=== PATIENT | male | born 1975 | race Caucasian/White ===

== ENCOUNTER 2022-09-03 13:23 | Emergency (ER) | payer BC, SELFPAY ==
[2022-09-03 13:24] VITALS: BP 146/91; PULSE 104; RESP 18; TEMP 36.4; O2SAT 98; BMI 29.8
--- NOTE | 2022-09-03 13:31 | XR_ITS ---
FINAL REPORT CLINICAL HISTORY: Low back pain worse when standing COMPARISON: None FINDINGS: No fracture is identified. Mild diffuse degenerative disc disease with endplate spurring. Alignment is normal. IMPRESSION: Degenerative changes without acute findings. Reviewed, Interpreted and Dictated by Lashaun Yates MD Transcribed by Maricarmen Norris Authenticated and [facility]
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
[2022-09-03 14:00] VITALS: BP 162/94; PULSE 104; RESP 20; O2SAT 96
[2022-09-03 14:30] VITALS: BP 126/93; PULSE 85; RESP 18; O2SAT 96
[2022-09-03 15:00] VITALS: BP 138/104; PULSE 79; RESP 18; O2SAT 96
--- NOTE | 2022-09-03 15:21 | PC.NURSE ---
PATIENT GIVEN BLANKET, MOTHER AT BEDSIDE NO OTHER NEEDS AT THIS TIME
[2022-09-03 15:35] VITALS: BP 146/99; PULSE 80; RESP 17; TEMP 36.8; O2SAT 97
== END 2022-09-03 15:35 | disposition home or self-care (01) ==
PROVIDERS: Emergency Provider Emergency Medicine; PCP Emergency Medicine
DX: S39.012A Strain of muscle, fascia and tendon of lower back, initial encounter (principal); F17.200 Nicotine dependence, unspecified, uncomplicated; X58.XXXA Exposure to other specified factors, initial encounter
CPT/HCPCS: 72100; 96372; 99283; 99284

== ENCOUNTER 2022-10-10 20:13 | Emergency (ER) | payer BC, SELFPAY ==
[2022-10-10 20:13] VITALS: BP 141/95; PULSE 89; RESP 16; TEMP 36.9; O2SAT 96; BMI 27.2
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
--- NOTE | 2022-10-10 20:26 | PC.NURSE ---
Attempted to call [place] twice for pt transportation. Received no answer.
[2022-10-10 20:29] VITALS: BP 136/93; PULSE 89; RESP 18; TEMP 36.7; O2SAT 96
--- NOTE | 2022-10-10 20:50 | PC.NURSE ---
Spoke with Oxana at [place] she advised I will have someone come get him.
== END 2022-10-10 21:05 | disposition home or self-care (01) ==
PROVIDERS: Emergency Provider Student in an Organized Health Care Education/Training Program; PCP Emergency Medicine
DX: S01.01XA Laceration without foreign body of scalp, initial encounter (principal); G40.919 Epilepsy, unspecified, intractable, without status epilepticus; E03.9 Hypothyroidism, unspecified; Y09 Assault by unspecified means; Z23 Encounter for immunization
CPT/HCPCS: 12002; 90715; 96372; 99283

== ENCOUNTER 2023-12-21 12:36 | Emergency (ER) | payer BC, SELFPAY ==
[2023-12-21 12:39] VITALS: BP 132/95; PULSE 106; RESP 18; O2SAT 97; BMI 18.7
[2023-12-21 12:48] VITALS: BP 132/95; PULSE 98; O2SAT 92
[2023-12-21 13:01] VITALS: BP 141/86; PULSE 96; O2SAT 96
--- NOTE | 2023-12-21 13:12 | PC.NURSE ---
dr abbasi at bedside
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
[2023-12-21 13:30] VITALS: BP 130/85; PULSE 98; O2SAT 97
--- NOTE | 2023-12-21 14:07 | PC.NURSE ---
ABDULKADIR NOTIFIED THAT RESIDENT IS READY FOR DISCHARGE
[2023-12-21 14:15] VITALS: BP 139/92; PULSE 97; RESP 18; TEMP 36.7; O2SAT 99
== END 2023-12-21 14:21 | disposition home or self-care (01) ==
PROVIDERS: Emergency Provider Student in an Organized Health Care Education/Training Program; PCP Nurse Practitioner Acute Care
DX: S09.90XA Unspecified injury of head, initial encounter (principal); Y04.0XXA Assault by unarmed brawl or fight, initial encounter
CPT/HCPCS: 99283

== ENCOUNTER 2024-11-11 07:56 | Emergency (ER) | payer OTHER, SELFPAY ==
[2024-11-11] VITALS (9 sets, daily range): BP systolic 106–131; BP diastolic 65–82; PULSE 92–114; RESP 12; TEMP 36.8; O2SAT 94–95; BMI 33.5
--- NOTE | 2024-11-11 07:58 | XR_ITS ---
PROCEDURE INFORMATION: Exam: XR Right Hand Exam date and time: 11/11/2024 8:19 AM Age: 49 years old Clinical indication: Pain; Hand; Right; Additional info: Right index finger pain TECHNIQUE: Imaging protocol: Radiologic exam of the right hand. Views: 3 or more views. COMPARISON: No relevant prior studies available. FINDINGS: Bones/joints: No acute fracture or dislocation. Soft tissues: Questionable soft tissue edema proximal 2nd digit. No radiopaque foreign body. IMPRESSION: Questionable soft tissue edema proximal 2nd digit. No radiopaque foreign body.
--- NOTE | 2024-11-11 08:00 | ED_ITS ---
Discharge Plan Disposition Patient Disposition: Home, Self-Care Condition: Good Prescriptions Prescriptions: No Action acetaminophen-codeine 300-30 mg tablet 1 tab PO BID Qty: 60 2RF ketorolac 10 mg tablet 10 mg PO Q8H PRN (Reason: pain) Qty: 20 0RF Activity Restrictions/Add. Instructions Additional Instructions/Restrictions: Your XR today was normal. You can take Ibuprofen or Tylenol at home for pain. If you have any new or worsening symptoms please return to the ER for further evaluation. Clinical Impressions Clinical Impression: Finger pain, right Print Language Print Language: Syriac Discharge ED Provider: Angus Paula General Adult HPI General Chief complaint: PAIN Stated complaint: R hand pain Time Seen by Provider: 11/11/24 07:59 History of Present Illness HPI narrative: This is a 49-year-old male patient who is presenting to the emergency department today for evaluation of right index finger pain. Patient states that he has been having this pain in his index finger for quite some time over the past year. He states that the pain is not necessarily the driving factor that caused him to present to the emergency department today, but rather the fact that when he flexes and extends the finger he feels a crunching sensation in the finger. He has not had any traumatic injury to the hand. He denies punching or hitting objects. He has not had any fevers or chills, no overlying erythema, he has not noticed any joint swelling, and he denies a history of IV drug use. He has no abnormal sensation in the hand over the finger. Related Data Previous Rx's ?Medication ?Instructions ?Recorded ketorolac 10 mg tablet 10 mg PO Q8H PRN pain #20 ta bs 09/03/22 acetaminophen 300 mg-codeine 30 mg 1 tab PO BID #60 ta bs 02/04/23 tablet Allergies Allergy/AdvReac Type Severity Reaction Status Date / Time Unable to Assess Allergy Verified 09/03/22 13:42 [facility] Disclaimer: The information contained in this section may have been updated after the patient was seen, as this information can be updated by other users. Social History Smoking Status: Current every day smoker alcohol intake: never current occupational status: unemployed Travel in the last 8 weeks?: None Have you lived/traveled outside US in past 30 days?: No Contact w/someone who lives/traveled outside US past 30 days?: No Exposure to someone with infectious disease in past 14 days?: No Do you have a fever (greater than 100.4 F or 38 C)?: No Have you tested positive for COVID-19?: No Exposed to someone with COVID-19 in past 14 days?: No Do you have a sore throat?: No Do you have a cough?: No Do you have any weakness?: No Do you have any diarrhea?: No Are you experiencing any unusual bleeding?: No Do you have any muscle aches/pain?: No Do you have any abdominal pain?: No Are you experiencing loss of taste or smell?: No ROS Obtained: Yes All systems reviewed & no additional complaints except as documented Physical Exam General General appearance: other (See MDM) Respiratory Respiratory exam: Present other (See MDM) Cardiovascular Cardiovascular exam: Present other (See MDM) Neurological Exam Neurological exam: Present other (See MDM) Medical Decision Making Medical Records Medical records reviewed: Yes I reviewed the patient's medical records. Screening: Per USPSTF and CDC recommendations, given the prevalence of disease in our region, it is our hospital?s policy to screen for HIV and viral Hepatitis for all patients aged 18 and over and those with ongoing risk factors. Tim Inquiry Pt receiving controlled substance: No Tim was queried for this patient: No Vital Signs: 11/11/24 07:55 11/11/24 08:01 Temperature 98.3 F 98.3 F Temperature Source Oral Oral Pulse Rate 114 H Pulse Rate [Right] 114 H Respiratory Rate 12 12 Blood Pressure 131/65 Blood Pressure [Right Arm] 131/65 Blood Pressure Mean [Right Arm] 87 Blood Pressure Source Automatic Cuff Blood Pressure Source [Right Arm] Automatic Cuff Blood Pressure Position Supine Blood Pressure Position [Right Arm] Supine 02 Sat by Pulse Oximetry 95 95 Oxygen Delivery Method Room Air Room Air Orders (Tests/Meds): ED MEDICATIONS Discontinued Medications Generic Name Dose Route Start Last Admin Trade Name Freq PRN Reason Stop Dose Admin Acetaminophen 500 mg 11/11/24 08:00 11/11/24 08:15 Acetaminophen 500mg Tab PO 11/11/24 08:01 500 mg ONCE ONE Administration Ibuprofen 400 mg 11/11/24 08:00 11/11/24 08:15 Ibuprofen 400 Mg Tablet PO 11/11/24 08:01 400 mg ONCE ONE Administration ORDERS Category Date Time Status Hand XR right minimum 3 views [XR hand RT min 3V] Stat Exams 11/11/24 07:58 Taken Medical Decision Narrative: In summary, this is a 49-year-old male patient who is presenting from [facility] for evaluation of right index finger pain that has been going on for the last year. He is most disturbed by the fact that there is a crunching sensation appreciated when he flexes and extends the finger. He has had no traumatic injury to the finger. He does not have any significant comorbidities that would complicate his medical management or care. On initial evaluation of the patient they were resting comfortably in no acute distress and nontoxic in appearance. They are hemodynamically stable, saturating well room air, and are neurologically intact. On physical examination the patient does have mild tenderness along the proximal phalanx of the right index finger. He has normal sensation in all terminal nerve distributions of the right hand. Radial and ulnar pulses are intact in the right upper extremity. He has capillary refill less than 2 seconds distally in the digit. There is no obvious external signs of trauma to the hand. Differential diagnosis includes phalanx fracture, osteoarthritis, metacarpal fracture, among others. I have very low suspicion for more ominous diagnoses of septic arthritis as there is no effusion of the joint, no erythema overlying any of his joints, and he has no history of IV drug use. Initial interventions included 400 mg of ibuprofen and 500 mg of Tylenol. Initial workup included an x-ray of the right hand. X-ray was personally interpreted by me and demonstrated no acute fractures or dislocations. On reassessment of the patient he is resting comfortably in no acute distress. His symptoms of pain have improved with interventions listed above. We have also provided him with a healthy breakfast that he ate without difficulty. Patient is stable for discharge home. I have relayed imaging findings to the patient and he is reassured by these. At this time all questions have been answered and all parties are agreeable with the decision to discharge home Critical Care Critical Care Time Critical Care Time: No
[2024-11-11] MEDS: ACETAMINOPHEN 500MG TAB 500 MG PO (08:15)
[2024-11-11] MEDS: IBUPROFEN 400 MG TABLET PO (08:15)
--- NOTE | 2024-11-11 09:02 | PC.NURSE ---
08:50- Called [facility] to let them know that their resident was ready for discharge. [facility]
--- NOTE | 2024-11-11 09:57 | PC.NURSE ---
TRN called [facility] to check status of pt transportation, staff state that they are still working on it.
== END 2024-11-11 10:19 | disposition home or self-care (01) ==
PROVIDERS: Emergency Provider Student in an Organized Health Care Education/Training Program
DX: M79.644 Pain in right finger(s) (principal)
CPT/HCPCS: 73130; 99283

== ENCOUNTER 2025-03-22 11:43 | Emergency (ER) | payer OTHER, SELFPAY ==
--- NOTE | 2025-03-22 11:43 | XR_ITS ---
PROCEDURE INFORMATION: Exam: XR Right Femur Exam date and time: 03/22/2025 11:59 AM Age: 49 years old Clinical indication: Pain; Thigh; Right; Additional info: Fall TECHNIQUE: Imaging protocol: Radiologic exam of the right femur. Views: 2 views. COMPARISON: CR XR HIP RT 2-3V W/PELVIS 03/22/2025 11:59 AM FINDINGS: Bones/joints: No acute fracture or dislocation. Partially visualized tibial intramedullary gareth and proximal fixation screw. Soft tissues: Unremarkable. IMPRESSION: No acute findings.
--- NOTE | 2025-03-22 11:43 | XR_ITS ---
PROCEDURE INFORMATION: Exam: XR Right Hip Exam date and time: 03/22/2025 11:59 AM Age: 49 years old Clinical indication: Hip pain; Right hip; Additional info: Fall TECHNIQUE: Imaging protocol: Radiologic exam of the right hip. Views: 2 or 3 views hip with pelvis when performed. COMPARISON: CR XR LUMBAR SPINE 2-3V 09/03/2022 1:33 PM FINDINGS: Bones/joints: No acute fracture or dislocation. Moderate bilateral hip degenerative changes. Soft tissues: Unremarkable. IMPRESSION: No acute findings.
--- NOTE | 2025-03-22 11:43 | CT_ITS ---
PROCEDURE INFORMATION: Exam: CT Head Without Contrast Exam date and time: 03/22/2025 12:13 PM Age: 49 years old Clinical indication: Injury or trauma; Fall TECHNIQUE: Imaging protocol: Computed tomography of the head without contrast. Radiation optimization: All CT scans at this facility use at least one of these dose optimization techniques: automated exposure control; mA and/or kV adjustment per patient size (includes targeted exams where dose is matched to clinical indication); or iterative reconstruction. COMPARISON: No relevant prior studies available. FINDINGS: Brain: Extensive hypoattenuation in the bilateral frontal periventricular and subcortical white matter. Cortical encephalomalacia in the [id number]-[id number]-khuq-left inferior frontal lobes. Foci of hypoattenuation also seen in the right posterior frontal granados radiata. Central predominant cerebral volume loss, greater than expected for age. No significant mass effect. Cerebral ventricles: The lateral ventricles are enlarged, [id number]-[id number]-left, likely vacuo dilatation. The 3rd ventricle is prominent. Paranasal sinuses: Mild left maxillary sinus mucosal thickening. Mastoid air cells: The tympanomastoid cavities are clear. Bones: Bilateral maxillary ORIF and partial right maxillectomy. Soft tissues: Unremarkable. IMPRESSION: 1. No acute hemorrhage or mass effect. 2. Extensive white matter hypoattenuation in the bilateral frontal periventricular and subcortical white matter. MRI is recommended for further evaluation. 3. 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 4. Central predominant cerebral volume loss, greater than expected for age.
--- NOTE | 2025-03-22 11:44 | ED_ITS ---
Discharge Plan Disposition Patient Disposition: Home, Self-Care Prescriptions Prescriptions: No Action acetaminophen-codeine 300-30 mg tablet 1 tab PO BID Qty: 60 2RF ketorolac 10 mg tablet 10 mg PO Q8H PRN (Reason: pain) Qty: 20 0RF Referrals Follow up/Referrals: Provider,Referral, MD [Primary Care Provider, Medical] - See instructions Activity Restrictions/Add. Instructions Additional Instructions/Restrictions: At this time it was felt you are safe to be discharged home. If new or worsening symptoms please do not hesitate to return the emergency department. Please follow-up with your care provider as soon as you can to see if you need further imaging of your brain. I did not find any traumatic injuries today from your fall. Clinical Impressions Clinical Impression: Fall, Abnormal CT of the head Print Language Print Language: Emirati Discharge ED Provider: Juan Wang General Adult HPI General Chief complaint: Fall Stated complaint: Fall Time Seen by Provider: 03/22/25 11:47 History of Present Illness HPI narrative: Patient is a 49-year-old male who presents emergency department for evaluation of traumatic injury sustained in fall. Patient just got done using the bathroom when he stood up became unsteady on his feet and fell backwards hitting his right hip on either the side of the sink or the tub. He scraped his head on the wall going down but did not strike his head on the floor. No anticoagulants. He is typically difficult to get around but is able to ambulate with difficulty and unsteadiness. He is not complaining of anything other than right hip pain. Fingerstick en route acceptable. No other acute complaints at this time. Please note that above description of symptoms, in this electronic medical record under categorization of recalled from ER triage doctor by RN are reflective of an initial nursing assessment, however, is not reflective of my full history and physical exam that was personally taken and clarified. Consequentially, this preceding description of symptoms, which may include the patient's categorized chief complaint in the EMR, do not reflect my personal clinical impression, and the ultimate description of history of present illness and patient stated complaints should be deferred to this section of the note. Unless stated otherwise or congruent with this section of the note, additional signs, symptoms, or incongruence should be interpreted as inaccurate with my clinical impression. Related Data Previous Rx's ?Medication ?Instructions ?Recorded ketorolac 10 mg tablet 10 mg PO Q8H PRN pain #20 ta bs 09/03/22 acetaminophen 300 mg-codeine 30 mg 1 tab PO BID #60 ta bs 02/04/23 tablet Allergies Allergy/AdvReac Type Severity Reaction Status Date / Time No Known Allergies Allergy Verified 11/11/24 10:01 [facility] Disclaimer: The information contained in this section may have been updated after the patient was seen, as this information can be updated by other users. Social History Smoking Status: Current every day smoker alcohol intake: never current occupational status: unemployed Travel in the last 8 weeks?: None ROS Obtained: Yes Systems reviewed as appropriate & no additional complaints except as documented Physical Exam General General appearance: alert and in no apparent distress Head Head exam: atraumatic and normocephalic Eye Eye exam: Present PERRL and EOMI ENT ENT exam: Present mucous membranes moist Neck Neck exam: Present normal inspection Chest Chest inspection: Present normal inspection and symmetric chest wall rise Respiratory Respiratory exam: Present normal lung sounds bilaterally; Absent respiratory distress Cardiovascular Cardiovascular exam: Present regular rate and normal rhythm Abdominal Exam Abdominal exam: Present soft; Absent tenderness Extremities Exam Extremities exam: Present other (Tenderness right hip, extensor mechanism intact 5 out of 5 strength BLE.) Back Exam Back exam: Absent tenderness Neurological Exam Neurological exam: Present alert and oriented X3 Psychiatric Psychiatric exam: Present normal affect Skin Skin exam: Present warm and dry Medical Decision Making Medical Records Screening: Per USPSTF and CDC recommendations, given the prevalence of disease in our region, it is our hospital?s policy to screen for HIV and viral Hepatitis for all patients aged 18 and over and those with ongoing risk factors. Tim Inquiry Pt receiving controlled substance: No Vital Signs: 03/22/25 11:45 03/22/25 11:46 03/22/25 12:30 Temperature 98.6 F Temperature Source Oral Pulse Rate 95 H 86 Pulse Rate [Left Radial] 61 Respiratory Rate 16 Blood Pressure 132/95 H Blood Pressure [Right Arm] 132/92 H Blood Pressure Mean [Right Arm] 105 Blood Pressure Source [Right Arm] Automatic Cuff Blood Pressure Position [Right Arm] Supine 02 Sat by Pulse Oximetry 94 L 96 94 L Oxygen Delivery Method Room Air 03/22/25 13:00 Temperature Temperature Source Pulse Rate 79 Pulse Rate [Left Radial] Respiratory Rate Blood Pressure 117/79 Blood Pressure [Right Arm] Blood Pressure Mean [Right Arm] Blood Pressure Source [Right Arm] Blood Pressure Position [Right Arm] 02 Sat by Pulse Oximetry 96 Oxygen Delivery Method Orders (Tests/Meds): ED MEDICATIONS Discontinued Medications Generic Name Dose Route Start Last Admin Trade Name Linette PRN Reason Stop Dose Admin Acetaminophen 1,000 mg 03/22/25 11:43 03/22/25 11:53 Acetaminophen 500mg Tab PO 03/22/25 11:44 1,000 mg ONCE ONE Administration Methocarbamol 1,000 mg 03/22/25 11:43 03/22/25 11:53 Methocarbamol 500mg Tablet PO 03/22/25 11:44 1,000 mg ONCE ONE Administration ORDERS Category Date Time Status CT head/brain wo con Stat Cat Scan 03/22/25 11:43 Completed Femur XR right 2 views [XR femur RT 2V] Stat Exams 03/22/25 11:43 Completed Hip XR right minimum 2 views [XR hip RT 2-3V w/pelvis] Exams 03/22/25 11:43 Completed Stat HIV Combo Stat Lab 03/22/25 12:18 Ordered Hepatitis C Ab Qual. W/ RFX Stat Lab 03/22/25 12:18 Ordered EKG Request [ECG Request] Stat Y 03/22/25 11:47 Ordered ECG Data Tracing #1: Independently interpreted by me rate is 90, rhythm is regular, axis is normal, no ST elevation in anatomical contiguous leads, QTc 401. Medical Decision Narrative: In summary patient is a 49-year-old male with past medical history described above who presents to the emergency department for evaluation of traumatic injury sustained in a fall. Patient is hemodynamically stable and nontoxic- appearing upon arrival, afebrile. Patient has point tenderness over his right hip for which plain films will be obtained. He did scrape his head on the way down will get noncontrasted CT scan of the head. Trauma survey of the thorax and neck was considered but no pain will be deferred. With respect to mechanism I suspect it is from his chronic no baseline will defer workup from that standpoint with the exception of EKG. noncontrasted CT scan of the head informally visualized by me no large intracranial hemorrhage with midline shift. 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 Given that he is always unsteady at his chronic baseline I suspect this does need to be looked into further but does not need to be done on an emergent basis. Patient underwent ambulatory trial at bedside and was successful. Critical Care Critical Care Time Critical Care Time: No
[2025-03-22 11:45] VITALS: BP 132/95; PULSE 95; O2SAT 94
[2025-03-22 11:46] VITALS: BP 132/92; PULSE 61; RESP 16; TEMP 37; O2SAT 96; BMI 33.5
--- NOTE | 2025-03-22 11:47 | ECG_ITS ---
APPROVED REPORT Exam: Resting ECG HR:90 bpm ECG Measurements Heart Rate 90 AXES WI 147 P 72 QRSd 113 QRS 56 QT 353 T 47 QTc 401 Conclusion SINUS RHYTHM INDETERMINATE AXIS INCOMPLETE RIGHT BUNDLE BRANCH BLOCK [90+ ms QRS DURATION, TERMINAL R IN V1/V2, 40+ ms S IN I/aVL/V4/V5/V6] BORDERLINE ECG Electronically signed by : AURY PEREZ, 03/24/2025 09:30:59
[2025-03-22] MEDS: ACETAMINOPHEN 500MG TAB 1000 MG PO (11:53)
[2025-03-22] MEDS: METHOCARBAMOL 500MG TABLET 1000 MG PO (11:53)
[2025-03-22 12:30] VITALS: PULSE 86; O2SAT 94
[2025-03-22 13:00] VITALS: BP 117/79; PULSE 79; O2SAT 96
--- NOTE | 2025-03-22 13:33 | PC.NURSE ---
patient ambulated fine.
--- NOTE | 2025-03-22 13:42 | PC.NURSE ---
Addendum entered by Effie Gonzalez RN 03/22/25 14:21: called marlena Original Note: called [facility] for transportation back to facility they states unable to come get patient
--- NOTE | 2025-03-22 13:57 | PC.NURSE ---
called [facility] for patient transfer, they states they are unable to take [facility] if he can walk and talk.
--- NOTE | 2025-03-22 13:58 | PC.NURSE ---
xander from [facility] calls back and states they would have someone come get patient around 230pm
[2025-03-22 14:15] VITALS: BP 117/85; PULSE 70; RESP 16; TEMP 36.9; O2SAT 97
--- NOTE | 2025-03-22 14:16 | PC.NURSE ---
called rashaun to provide a walker for patient. rashaun will take walker to patients residence.
== END 2025-03-22 14:15 | disposition home or self-care (01) ==
PROVIDERS: Emergency Provider Emergency Medicine
DX: R93.0 Abnormal findings on diagnostic imaging of skull and head, not elsewhere classified (principal); R26.81 Unsteadiness on feet; W18.39XA Other fall on same level, initial encounter; M25.551 Pain in right hip
CPT/HCPCS: 70450; 73502; 73552; 93005; 99285